=== PATIENT | male | born 1960 | race Caucasian/White ===

== ENCOUNTER 2021-10-11 11:03 | Outpatient (CLI) | payer MEDICAID, SELFPAY | END 2021-10-11 11:04 | disposition home or self-care (01) | LOC: WOUND 11:04 | PROVIDERS: Visit Provider Nurse Practitioner Family | DX: E11.622 Type 2 diabetes mellitus with other skin ulcer (principal); L97.825 Non-pressure chronic ulcer of other part of left lower leg with muscle involvement without evidence of necrosis; D50.9 Iron deficiency anemia, unspecified; E66.01 Morbid (severe) obesity due to excess calories; Z68.43 Body mass index [BMI] 50.0-59.9, adult; Z79.4 Long term (current) use of insulin | CPT/HCPCS: 11042; 11045 ==

== ENCOUNTER 2021-10-18 13:01 | Outpatient (CLI) | payer MEDICAID, SELFPAY | END 2021-10-18 13:02 | disposition home or self-care (01) | LOC: WOUND 13:01 | PROVIDERS: Visit Provider Nurse Practitioner Family | DX: E11.622 Type 2 diabetes mellitus with other skin ulcer (principal); L97.823 Non-pressure chronic ulcer of other part of left lower leg with necrosis of muscle; S91.332A Puncture wound without foreign body, left foot, initial encounter; Z79.4 Long term (current) use of insulin; D50.9 Iron deficiency anemia, unspecified | CPT/HCPCS: 11043; 11046; 17250 ==

== ENCOUNTER 2021-10-25 12:46 | Outpatient (CLI) | payer MEDICAID, SELFPAY ==
--- NOTE | 2021-10-25 14:30 | CRLHL7_ITS ---
For Patients: As a result of the Century Cures Act, medical imaging exams and procedure reports are released immediately into your electronic medical record. You may view this report before your referring provider. If you have questions, please contact your health care provider. Indication: Nonhealing wound left foot, plantar side 5th toe.. Technique: Left foot 3 views. Comparison: None. Findings: Bones: Alignment is normal. No fractures. Degenerative changes are noted throughout the foot. Thickened cortex and probable periosteal reaction in the shaft of the 5th metacarpal. There are erosive changes identified at the 5th distal phalanx. Joint spaces: Joint spaces are well maintained. No degenerative changes. Soft tissues: Plantar soft tissue swelling. Cutaneous defect noted near the distal 1st phalanx.. Impression: Erosive changes at the distal 5th phalanx likely related to adjacent ulceration and suspicious for osteomyelitis. Dictated by Daphnie Arellano MD @ 10/25/2021 4:06:25 PM (Electronically Signed)
== END 2021-10-25 12:47 | disposition home or self-care (01) ==
PROVIDERS: Visit Provider Nurse Practitioner Family
DX: E11.621 Type 2 diabetes mellitus with foot ulcer (principal); L97.823 Non-pressure chronic ulcer of other part of left lower leg with necrosis of muscle; S91.332A Puncture wound without foreign body, left foot, initial encounter; Z79.4 Long term (current) use of insulin
CPT/HCPCS: 11043; 11046; 73630

== ENCOUNTER 2021-11-01 12:48 | Outpatient (CLI) | payer MEDICAID, SELFPAY | END 2021-11-01 12:49 | disposition home or self-care (01) | LOC: RAD 12:48 | PROVIDERS: Visit Provider Nurse Practitioner Family | DX: E11.622 Type 2 diabetes mellitus with other skin ulcer (principal); E11.621 Type 2 diabetes mellitus with foot ulcer; L97.823 Non-pressure chronic ulcer of other part of left lower leg with necrosis of muscle; S91.332A Puncture wound without foreign body, left foot, initial encounter; Z79.84 Long term (current) use of oral hypoglycemic drugs; Z79.4 Long term (current) use of insulin | CPT/HCPCS: 11042; 11043; 11046 ==

== ENCOUNTER 2021-11-08 13:53 | Outpatient (CLI) | payer MEDICAID, SELFPAY | END 2021-11-08 13:54 | disposition home or self-care (01) | LOC: WOUND 13:55 | PROVIDERS: Visit Provider Nurse Practitioner Family | DX: E11.622 Type 2 diabetes mellitus with other skin ulcer (principal); L97.823 Non-pressure chronic ulcer of other part of left lower leg with necrosis of muscle; S91.332A Puncture wound without foreign body, left foot, initial encounter; Z79.4 Long term (current) use of insulin; Z79.84 Long term (current) use of oral hypoglycemic drugs | CPT/HCPCS: 11042; 11045 ==

== ENCOUNTER 2021-11-15 15:02 | Outpatient (CLI) | payer MEDICAID, SELFPAY | END 2021-11-15 15:03 | disposition home or self-care (01) | LOC: WOUND 01-25 15:33 | PROVIDERS: Visit Provider Nurse Practitioner Family | DX: E11.622 Type 2 diabetes mellitus with other skin ulcer (principal); E11.621 Type 2 diabetes mellitus with foot ulcer; L97.823 Non-pressure chronic ulcer of other part of left lower leg with necrosis of muscle; L97.528 Non-pressure chronic ulcer of other part of left foot with other specified severity; S91.332A Puncture wound without foreign body, left foot, initial encounter; Z79.4 Long term (current) use of insulin; Z79.84 Long term (current) use of oral hypoglycemic drugs | CPT/HCPCS: 11043; 11046 ==

== ENCOUNTER 2021-11-22 13:54 | Outpatient (CLI) | payer MEDICAID, SELFPAY | END 2021-11-22 13:55 | disposition home or self-care (01) | LOC: WOUND 13:54 | PROVIDERS: Visit Provider Nurse Practitioner Family | DX: E11.622 Type 2 diabetes mellitus with other skin ulcer (principal); E11.621 Type 2 diabetes mellitus with foot ulcer; L97.823 Non-pressure chronic ulcer of other part of left lower leg with necrosis of muscle; L97.525 Non-pressure chronic ulcer of other part of left foot with muscle involvement without evidence of necrosis; Z79.4 Long term (current) use of insulin; Z79.84 Long term (current) use of oral hypoglycemic drugs | CPT/HCPCS: 11042; 11045 ==

== ENCOUNTER 2021-11-29 13:48 | Outpatient (CLI) | payer MEDICAID, SELFPAY | END 2021-11-29 13:49 | disposition home or self-care (01) | LOC: WOUND 13:48 | PROVIDERS: Visit Provider Nurse Practitioner Family | DX: E11.622 Type 2 diabetes mellitus with other skin ulcer (principal); L97.823 Non-pressure chronic ulcer of other part of left lower leg with necrosis of muscle; Z79.84 Long term (current) use of oral hypoglycemic drugs | CPT/HCPCS: 11042; 11045 ==

== ENCOUNTER 2021-12-13 13:59 | Outpatient (CLI) | payer MEDICAID, SELFPAY | END 2021-12-13 14:00 | disposition home or self-care (01) | LOC: WOUND 13:59 | PROVIDERS: Visit Provider Nurse Practitioner Family | DX: E11.621 Type 2 diabetes mellitus with foot ulcer (principal); E11.622 Type 2 diabetes mellitus with other skin ulcer; L97.823 Non-pressure chronic ulcer of other part of left lower leg with necrosis of muscle; L97.522 Non-pressure chronic ulcer of other part of left foot with fat layer exposed; Z79.4 Long term (current) use of insulin; Z79.84 Long term (current) use of oral hypoglycemic drugs | CPT/HCPCS: 11042; 11045 ==

== ENCOUNTER 2021-12-20 13:49 | Outpatient (CLI) | payer MEDICAID, SELFPAY | END 2021-12-20 13:50 | disposition home or self-care (01) | LOC: WOUND 13:50 | PROVIDERS: Visit Provider Nurse Practitioner Family | DX: E11.621 Type 2 diabetes mellitus with foot ulcer (principal); E11.622 Type 2 diabetes mellitus with other skin ulcer; L97.823 Non-pressure chronic ulcer of other part of left lower leg with necrosis of muscle | CPT/HCPCS: 11043; 11046 ==

== ENCOUNTER 2021-12-20 15:25 | Outpatient (CLI) | payer MEDICAID, SELFPAY ==
[2021-12-20 16:00] LABS: Basophils Absolute Auto 0.03 K/uL (0.00-0.30); Basophils Percent Auto 0.4 % (0.0-3.0); Eosinophils Percent Auto 7.5 % (0.0-7.0); Hematocrit 35.5 % (37.0-53.0); Hemoglobin* 11.6 gm/dL (13.5-17.5); Immature Granulocytes Abs Auto 0.01 K/uL (0.00-0.30); Mean Corpuscular HGB Conc 33 gm/dL (32-36); Mean Corpuscular Hemoglobin 26 pg (26-34); Mean Corpuscular Volume 79 fL (80-100); Monocytes Percent Auto 6.8 % (0.0-11.0); Neutrophils Absolute Auto 4.59 K/uL (1.7-7.0); Neutrophils Percent Auto 66.2 % (42.0-72.0); Platelet Count* 187 K/uL (140-440); Red Blood Count 4.51 m/uL (4.30-5.90); White Blood Count* 6.94 K/uL (4.50-11.00)
[2021-12-20 16:04] LABS: Slide Review Reflex No
[2021-12-20 16:27] LABS: Albumin* 4.1 g/dL (3.3-5.0); Chloride* 101 mmol/L (96-114)
[2021-12-20 16:28] LABS: Potassium* 4.6 mmol/L (3.6-5.1); Sodium* 141 mmol/L (135-149)
[2021-12-20 16:30] LABS: Creatinine* 1.5 mg/dL (0.5-1.5); Estimated Glomerular Filt Rate 53 ml/min
[2021-12-20 16:31] LABS: Alanine Aminotransferase* 21 U/L (4-50); Alkaline Phosphatase* 91 U/L (40-150); Aspartate Amino Transferase* 19 U/L (12-35); Bilirubin Direct* 0.2 mg/dL (0.0-0.5); Bilirubin Total* 0.6 mg/dL (0.1-1.5); Blood Urea Nitrogen* 30 mg/dL (7-30); Calcium* 8.7 mg/dL (8.4-10.6); Carbon Dioxide* 29 mmol/L (20-32); Glucose* 96 mg/dL (60-115); Total Protein* 6.9 g/dL (6.0-8.3)
[2021-12-20 16:47] LABS: Hemoglobin A1C* 7.63 % (0-5.6)
[2021-12-20 16:51] LABS: C Reactive Protein* < 0.5 mg/dL (0.5-1.0)
[2021-12-20 17:42] LABS: Ferritin* 44.1 ng/mL (17.9-464.0)
== END 2021-12-20 15:26 | disposition home or self-care (01) ==
PROVIDERS: Visit Provider Nurse Practitioner Family
DX: E11.622 Type 2 diabetes mellitus with other skin ulcer (principal); E66.01 Morbid (severe) obesity due to excess calories; L29.9 Pruritus, unspecified; L97.523 Non-pressure chronic ulcer of other part of left foot with necrosis of muscle; L97.909 Non-pressure chronic ulcer of unspecified part of unspecified lower leg with unspecified severity; Z68.43 Body mass index [BMI] 50.0-59.9, adult
CPT/HCPCS: 11043; 11046; 36415; 80048; 80076; 82728; 83036; 85025; 86140

== ENCOUNTER 2021-12-27 14:26 | Outpatient (CLI) | payer MEDICAID, SELFPAY | END 2021-12-27 14:27 | disposition home or self-care (01) | LOC: WOUND 14:27 | PROVIDERS: Visit Provider Nurse Practitioner Family | DX: E11.621 Type 2 diabetes mellitus with foot ulcer (principal); E11.622 Type 2 diabetes mellitus with other skin ulcer; L97.526 Non-pressure chronic ulcer of other part of left foot with bone involvement without evidence of necrosis; L97.823 Non-pressure chronic ulcer of other part of left lower leg with necrosis of muscle; Z79.4 Long term (current) use of insulin; Z79.84 Long term (current) use of oral hypoglycemic drugs | CPT/HCPCS: 11043 ==

== ENCOUNTER 2022-01-31 14:08 | Outpatient (CLI) | payer MEDICAID, SELFPAY | END 2022-01-31 14:09 | disposition home or self-care (01) | LOC: WOUND 14:08 | PROVIDERS: PCP Family Medicine; Visit Provider Nurse Practitioner Family | DX: E11.622 Type 2 diabetes mellitus with other skin ulcer (principal); E11.621 Type 2 diabetes mellitus with foot ulcer; L97.823 Non-pressure chronic ulcer of other part of left lower leg with necrosis of muscle; L97.526 Non-pressure chronic ulcer of other part of left foot with bone involvement without evidence of necrosis; S81.801A Unspecified open wound, right lower leg, initial encounter; Z79.4 Long term (current) use of insulin | CPT/HCPCS: 11042; 11043; 11046; 99212 ==

== ENCOUNTER 2022-02-14 14:01 | Outpatient (CLI) | payer MEDICAID, SELFPAY | END 2022-02-14 14:02 | disposition home or self-care (01) | LOC: WOUND 14:01 | PROVIDERS: PCP Family Medicine; Visit Provider Nurse Practitioner Family | DX: E11.622 Type 2 diabetes mellitus with other skin ulcer (principal); L97.823 Non-pressure chronic ulcer of other part of left lower leg with necrosis of muscle; E11.621 Type 2 diabetes mellitus with foot ulcer; L97.526 Non-pressure chronic ulcer of other part of left foot with bone involvement without evidence of necrosis; Z79.4 Long term (current) use of insulin; Z79.84 Long term (current) use of oral hypoglycemic drugs; S81.801A Unspecified open wound, right lower leg, initial encounter | CPT/HCPCS: 11043; 97597 ==

== ENCOUNTER 2022-02-21 13:58 | Outpatient (CLI) | payer MEDICAID, SELFPAY | END 2022-02-21 13:59 | disposition home or self-care (01) | LOC: WOUND 13:58 | PROVIDERS: PCP Family Medicine; Visit Provider Nurse Practitioner Family | DX: E11.622 Type 2 diabetes mellitus with other skin ulcer (principal); L97.823 Non-pressure chronic ulcer of other part of left lower leg with necrosis of muscle; E11.621 Type 2 diabetes mellitus with foot ulcer; L97.526 Non-pressure chronic ulcer of other part of left foot with bone involvement without evidence of necrosis; I87.311 Chronic venous hypertension (idiopathic) with ulcer of right lower extremity; L97.818 Non-pressure chronic ulcer of other part of right lower leg with other specified severity; Z79.84 Long term (current) use of oral hypoglycemic drugs; Z79.4 Long term (current) use of insulin | CPT/HCPCS: 11042 ==

== ENCOUNTER 2022-02-28 13:50 | Outpatient (CLI) | payer MEDICAID, SELFPAY | END 2022-02-28 13:51 | disposition home or self-care (01) | LOC: WOUND 13:50 | PROVIDERS: PCP Family Medicine; Visit Provider Nurse Practitioner Family | DX: E11.622 Type 2 diabetes mellitus with other skin ulcer (principal); E11.621 Type 2 diabetes mellitus with foot ulcer; L97.823 Non-pressure chronic ulcer of other part of left lower leg with necrosis of muscle; L97.526 Non-pressure chronic ulcer of other part of left foot with bone involvement without evidence of necrosis; Z79.4 Long term (current) use of insulin; Z79.84 Long term (current) use of oral hypoglycemic drugs | CPT/HCPCS: 11042 ==

== ENCOUNTER 2022-03-21 13:58 | Outpatient (CLI) | payer MEDICAID, SELFPAY | END 2022-03-21 13:59 | disposition home or self-care (01) | LOC: WOUND 13:58 | PROVIDERS: PCP Family Medicine; Visit Provider Nurse Practitioner Family | DX: E11.621 Type 2 diabetes mellitus with foot ulcer (principal); L97.526 Non-pressure chronic ulcer of other part of left foot with bone involvement without evidence of necrosis; E11.622 Type 2 diabetes mellitus with other skin ulcer; L97.823 Non-pressure chronic ulcer of other part of left lower leg with necrosis of muscle; Z79.84 Long term (current) use of oral hypoglycemic drugs; Z79.4 Long term (current) use of insulin | CPT/HCPCS: 11042 ==

== ENCOUNTER 2022-04-11 13:48 | Outpatient (CLI) | payer MEDICAID, SELFPAY | END 2022-04-11 13:49 | disposition home or self-care (01) | LOC: WOUND 13:48 | PROVIDERS: PCP Family Medicine; Visit Provider Nurse Practitioner Family | DX: E11.622 Type 2 diabetes mellitus with other skin ulcer (principal); L97.823 Non-pressure chronic ulcer of other part of left lower leg with necrosis of muscle; E11.621 Type 2 diabetes mellitus with foot ulcer; L97.526 Non-pressure chronic ulcer of other part of left foot with bone involvement without evidence of necrosis; Z79.4 Long term (current) use of insulin; Z79.84 Long term (current) use of oral hypoglycemic drugs | CPT/HCPCS: 11043 ==

== ENCOUNTER 2022-04-25 13:58 | Outpatient (CLI) | payer MEDICAID, SELFPAY | END 2022-04-25 13:59 | disposition home or self-care (01) | LOC: WOUND 13:58 | PROVIDERS: PCP Family Medicine; Visit Provider Nurse Practitioner Family | DX: E11.622 Type 2 diabetes mellitus with other skin ulcer (principal); L97.825 Non-pressure chronic ulcer of other part of left lower leg with muscle involvement without evidence of necrosis; E11.621 Type 2 diabetes mellitus with foot ulcer; L97.526 Non-pressure chronic ulcer of other part of left foot with bone involvement without evidence of necrosis; Z79.4 Long term (current) use of insulin; Z79.84 Long term (current) use of oral hypoglycemic drugs | CPT/HCPCS: 11042; 97597 ==

== ENCOUNTER 2022-05-09 13:47 | Outpatient (CLI) | payer MEDICAID, SELFPAY | END 2022-05-09 13:48 | disposition home or self-care (01) | LOC: WOUND 13:47 | PROVIDERS: PCP Family Medicine; Visit Provider Nurse Practitioner Family | DX: E11.622 Type 2 diabetes mellitus with other skin ulcer (principal); L97.823 Non-pressure chronic ulcer of other part of left lower leg with necrosis of muscle; S81.811A Laceration without foreign body, right lower leg, initial encounter; L97.526 Non-pressure chronic ulcer of other part of left foot with bone involvement without evidence of necrosis; Z79.4 Long term (current) use of insulin; Z79.84 Long term (current) use of oral hypoglycemic drugs | CPT/HCPCS: 11042; 97597 ==

== ENCOUNTER 2022-05-23 13:45 | Outpatient (CLI) | payer MEDICAID, SELFPAY | END 2022-05-23 13:46 | disposition home or self-care (01) | LOC: WOUND 13:45 | PROVIDERS: PCP Family Medicine; Visit Provider Nurse Practitioner Family | DX: E11.622 Type 2 diabetes mellitus with other skin ulcer (principal); L97.823 Non-pressure chronic ulcer of other part of left lower leg with necrosis of muscle; E11.621 Type 2 diabetes mellitus with foot ulcer; L97.526 Non-pressure chronic ulcer of other part of left foot with bone involvement without evidence of necrosis; L30.9 Dermatitis, unspecified; Z89.422 Acquired absence of other left toe(s); Z79.4 Long term (current) use of insulin; Z79.84 Long term (current) use of oral hypoglycemic drugs | CPT/HCPCS: 11042; 97597 ==

== ENCOUNTER 2022-06-25 14:19 | Outpatient (CLI) | payer MEDICAID, SELFPAY | END 2022-06-25 14:20 | disposition home or self-care (01) | LOC: WOUND 14:19 | PROVIDERS: PCP Family Medicine; Visit Provider Nurse Practitioner Family | DX: E11.622 Type 2 diabetes mellitus with other skin ulcer (principal); L97.823 Non-pressure chronic ulcer of other part of left lower leg with necrosis of muscle; Z79.4 Long term (current) use of insulin; Z79.84 Long term (current) use of oral hypoglycemic drugs | CPT/HCPCS: 11042 ==

== ENCOUNTER 2022-07-04 13:15 | Outpatient (CLI) | payer MEDICAID, SELFPAY | END 2022-07-04 13:16 | disposition home or self-care (01) | LOC: WOUND 13:15 | PROVIDERS: PCP Family Medicine; Visit Provider Nurse Practitioner Family | DX: E11.622 Type 2 diabetes mellitus with other skin ulcer (principal); L97.823 Non-pressure chronic ulcer of other part of left lower leg with necrosis of muscle; Z79.4 Long term (current) use of insulin; Z79.84 Long term (current) use of oral hypoglycemic drugs | CPT/HCPCS: 11042 ==

== ENCOUNTER 2022-07-11 13:13 | Outpatient (CLI) | payer MEDICAID, SELFPAY | END 2022-07-11 13:14 | disposition home or self-care (01) | LOC: WOUND 13:13 | PROVIDERS: PCP Family Medicine; Visit Provider Nurse Practitioner Family | DX: E11.622 Type 2 diabetes mellitus with other skin ulcer (principal); L97.823 Non-pressure chronic ulcer of other part of left lower leg with necrosis of muscle; Z79.4 Long term (current) use of insulin; Z79.84 Long term (current) use of oral hypoglycemic drugs | CPT/HCPCS: 11042 ==

== ENCOUNTER 2022-07-18 13:11 | Outpatient (CLI) | payer MEDICAID, SELFPAY ==
[2022-07-18 15:05] LABS: Hemoglobin A1C* 7.98 % (0-5.6)
[2022-07-18 16:06] LABS: Free T4 Free Thyroxine* 0.83 ng/dL (0.70-1.85)
[2022-07-18 16:24] LABS: Ferritin* 57.6 ng/mL (17.9-464.0)
[2022-07-19 13:04] LABS: Thyroid Stimulating Hormone* 0.736 uIU/mL (0.270-4.20)
[2022-07-20 14:48] LABS: TPO Antibody 2.4 IU/mL (0.0-9.0); Thyroglobulin Antibody <0.9 IU/mL (0.0-4.0)
[2022-07-20 15:06] LABS: Free T3 2.7 pg/mL (2.5-4.3); Total T3 94 ng/dL (80-200)
[2022-07-23 23:07] LABS: T3 Reverse - LC-MS/MS 12.5 ng/dL (9.0-27.0); T3, Total - LC-MS/MS 75 ng/dL (80-200)
== END 2022-07-18 13:12 | disposition home or self-care (01) ==
LOC: WOUND 13:11
PROVIDERS: PCP Family Medicine; Visit Provider Nurse Practitioner Family
DX: E11.622 Type 2 diabetes mellitus with other skin ulcer (principal); L97.823 Non-pressure chronic ulcer of other part of left lower leg with necrosis of muscle; D50.9 Iron deficiency anemia, unspecified; I87.2 Venous insufficiency (chronic) (peripheral); R53.83 Other fatigue; L85.3 Xerosis cutis; Z79.4 Long term (current) use of insulin; Z13.29 Encounter for screening for other suspected endocrine disorder
CPT/HCPCS: 11042; 36415; 82728; 83036; 84439; 84443; 84480; 84481; 84482; 86376; 86800

== ENCOUNTER 2022-07-25 13:17 | Outpatient (CLI) | payer MEDICAID, SELFPAY | END 2022-07-25 13:18 | disposition home or self-care (01) | LOC: WOUND 13:17 | PROVIDERS: PCP Family Medicine; Visit Provider Nurse Practitioner Family | DX: E11.622 Type 2 diabetes mellitus with other skin ulcer (principal); L97.823 Non-pressure chronic ulcer of other part of left lower leg with necrosis of muscle; Z79.4 Long term (current) use of insulin; Z79.84 Long term (current) use of oral hypoglycemic drugs | CPT/HCPCS: 97597 ==

== ENCOUNTER 2022-08-08 12:05 | Outpatient (CLI) | payer MEDICAID, SELFPAY | END 2022-08-08 12:06 | disposition home or self-care (01) | LOC: WOUND 12:05 | PROVIDERS: PCP Family Medicine; Visit Provider Nurse Practitioner Family | DX: E11.622 Type 2 diabetes mellitus with other skin ulcer (principal); L97.823 Non-pressure chronic ulcer of other part of left lower leg with necrosis of muscle; I87.2 Venous insufficiency (chronic) (peripheral); Z79.4 Long term (current) use of insulin; Z79.84 Long term (current) use of oral hypoglycemic drugs | CPT/HCPCS: 11042; 99212 ==

== ENCOUNTER 2022-08-15 12:40 | Outpatient (CLI) | payer MEDICAID, SELFPAY | END 2022-08-15 12:41 | disposition home or self-care (01) | LOC: WOUND 12:40 | PROVIDERS: PCP Family Medicine; Visit Provider Nurse Practitioner Family | DX: E11.622 Type 2 diabetes mellitus with other skin ulcer (principal); L97.222 Non-pressure chronic ulcer of left calf with fat layer exposed; L97.812 Non-pressure chronic ulcer of other part of right lower leg with fat layer exposed; L97.822 Non-pressure chronic ulcer of other part of left lower leg with fat layer exposed; R53.83 Other fatigue; E66.01 Morbid (severe) obesity due to excess calories; Z68.43 Body mass index [BMI] 50.0-59.9, adult; Z79.4 Long term (current) use of insulin; Z79.84 Long term (current) use of oral hypoglycemic drugs | CPT/HCPCS: 11042 ==

== ENCOUNTER 2022-10-03 13:06 | Outpatient (CLI) | payer MEDICAID, SELFPAY | END 2022-10-03 13:07 | disposition home or self-care (01) | LOC: WOUND 13:06 | PROVIDERS: PCP Family Medicine; Visit Provider Family Medicine | DX: E11.622 Type 2 diabetes mellitus with other skin ulcer (principal); I87.312 Chronic venous hypertension (idiopathic) with ulcer of left lower extremity; L97.823 Non-pressure chronic ulcer of other part of left lower leg with necrosis of muscle; L97.222 Non-pressure chronic ulcer of left calf with fat layer exposed; L97.212 Non-pressure chronic ulcer of right calf with fat layer exposed; S91.101A Unspecified open wound of right great toe without damage to nail, initial encounter; Z79.4 Long term (current) use of insulin; Z79.84 Long term (current) use of oral hypoglycemic drugs | CPT/HCPCS: 97597 ==

== ENCOUNTER 2022-10-17 12:51 | Outpatient (CLI) | payer MEDICAID, SELFPAY | END 2022-10-17 12:52 | disposition home or self-care (01) | LOC: WOUND 12:51 | PROVIDERS: PCP Family Medicine; Visit Provider Nurse Practitioner Family | DX: E11.622 Type 2 diabetes mellitus with other skin ulcer (principal); L97.823 Non-pressure chronic ulcer of other part of left lower leg with necrosis of muscle; Z79.4 Long term (current) use of insulin; Z79.84 Long term (current) use of oral hypoglycemic drugs | CPT/HCPCS: 11042 ==

== ENCOUNTER 2022-10-31 14:06 | Outpatient (CLI) | payer MEDICAID, SELFPAY | END 2022-10-31 14:07 | disposition home or self-care (01) | LOC: WOUND 14:06 | PROVIDERS: PCP Family Medicine; Visit Provider Nurse Practitioner Family | DX: E11.622 Type 2 diabetes mellitus with other skin ulcer (principal); L97.823 Non-pressure chronic ulcer of other part of left lower leg with necrosis of muscle; S91.101A Unspecified open wound of right great toe without damage to nail, initial encounter; Z79.4 Long term (current) use of insulin; Z79.84 Long term (current) use of oral hypoglycemic drugs | CPT/HCPCS: 11042; 97602 ==

== ENCOUNTER 2022-11-14 13:04 | Outpatient (CLI) | payer MEDICAID, SELFPAY | END 2022-11-14 13:05 | disposition home or self-care (01) | LOC: WOUND 13:04 | PROVIDERS: PCP Family Medicine; Visit Provider Nurse Practitioner Family | DX: E11.622 Type 2 diabetes mellitus with other skin ulcer (principal); L97.823 Non-pressure chronic ulcer of other part of left lower leg with necrosis of muscle; Z79.4 Long term (current) use of insulin; Z79.84 Long term (current) use of oral hypoglycemic drugs | CPT/HCPCS: 11042 ==

== ENCOUNTER 2022-11-28 13:07 | Outpatient (CLI) | payer MEDICAID, SELFPAY | END 2022-11-28 13:08 | disposition home or self-care (01) | PROVIDERS: PCP Family Medicine; Visit Provider Nurse Practitioner Family | DX: E11.621 Type 2 diabetes mellitus with foot ulcer (principal); L97.512 Non-pressure chronic ulcer of other part of right foot with fat layer exposed; E11.622 Type 2 diabetes mellitus with other skin ulcer; L97.822 Non-pressure chronic ulcer of other part of left lower leg with fat layer exposed; Z79.4 Long term (current) use of insulin; Z79.84 Long term (current) use of oral hypoglycemic drugs | CPT/HCPCS: 11042 ==

== ENCOUNTER 2022-12-12 13:08 | Outpatient (CLI) | payer MEDICAID, SELFPAY | END 2022-12-12 13:09 | disposition home or self-care (01) | LOC: WOUND 13:08 | PROVIDERS: PCP Family Medicine; Visit Provider Nurse Practitioner Family | DX: E11.622 Type 2 diabetes mellitus with other skin ulcer (principal); L97.822 Non-pressure chronic ulcer of other part of left lower leg with fat layer exposed; Z79.4 Long term (current) use of insulin; Z79.84 Long term (current) use of oral hypoglycemic drugs | CPT/HCPCS: 11042 ==

== ENCOUNTER 2022-12-26 13:12 | Outpatient (CLI) | payer MEDICAID, SELFPAY | END 2022-12-26 13:13 | disposition home or self-care (01) | LOC: WOUND 13:12 | PROVIDERS: PCP Family Medicine; Visit Provider Nurse Practitioner Family | DX: E11.622 Type 2 diabetes mellitus with other skin ulcer (principal); L97.822 Non-pressure chronic ulcer of other part of left lower leg with fat layer exposed; Z79.4 Long term (current) use of insulin; Z79.84 Long term (current) use of oral hypoglycemic drugs | CPT/HCPCS: 11042 ==

== ENCOUNTER 2023-01-09 13:27 | Outpatient (CLI) | payer MEDICAID, SELFPAY | END 2023-01-09 13:28 | disposition home or self-care (01) | LOC: WOUND 01-17 11:13 | PROVIDERS: PCP Family Medicine; Visit Provider Nurse Practitioner Family | DX: E11.622 Type 2 diabetes mellitus with other skin ulcer (principal); L97.828 Non-pressure chronic ulcer of other part of left lower leg with other specified severity; Z79.4 Long term (current) use of insulin; Z79.84 Long term (current) use of oral hypoglycemic drugs | CPT/HCPCS: 11042 ==

== ENCOUNTER 2023-01-23 13:20 | Outpatient (CLI) | payer MEDICAID, SELFPAY | END 2023-01-23 13:21 | disposition home or self-care (01) | LOC: WOUND 13:20 | PROVIDERS: PCP Family Medicine; Visit Provider Nurse Practitioner Family | DX: E11.622 Type 2 diabetes mellitus with other skin ulcer (principal); L97.822 Non-pressure chronic ulcer of other part of left lower leg with fat layer exposed; Z79.4 Long term (current) use of insulin; Z79.84 Long term (current) use of oral hypoglycemic drugs | CPT/HCPCS: 11042 ==

== ENCOUNTER 2023-02-20 13:29 | Outpatient (CLI) | payer MEDICAID, SELFPAY | END 2023-02-20 13:30 | disposition home or self-care (01) | LOC: WOUND 13:29 | PROVIDERS: PCP Family Medicine; Visit Provider Nurse Practitioner Family | DX: E11.622 Type 2 diabetes mellitus with other skin ulcer (principal); L97.822 Non-pressure chronic ulcer of other part of left lower leg with fat layer exposed; S91.131A Puncture wound without foreign body of right great toe without damage to nail, initial encounter; W26.8XXA Contact with other sharp object(s), not elsewhere classified, initial encounter; Z79.4 Long term (current) use of insulin; Z79.84 Long term (current) use of oral hypoglycemic drugs | CPT/HCPCS: 11042; 97602; 99213 ==

== ENCOUNTER 2023-03-20 13:32 | Outpatient (CLI) | payer MEDICAID, SELFPAY | END 2023-03-20 13:33 | disposition home or self-care (01) | LOC: WOUND 13:32 | PROVIDERS: PCP Family Medicine; Visit Provider Nurse Practitioner Family | DX: E11.622 Type 2 diabetes mellitus with other skin ulcer (principal); L97.822 Non-pressure chronic ulcer of other part of left lower leg with fat layer exposed; Z79.4 Long term (current) use of insulin; Z79.84 Long term (current) use of oral hypoglycemic drugs | CPT/HCPCS: 11042 ==

== ENCOUNTER 2023-04-17 13:28 | Outpatient (CLI) | payer MEDICAID, SELFPAY | END 2023-04-17 13:29 | disposition home or self-care (01) | LOC: WOUND 13:28 | PROVIDERS: PCP Family Medicine; Visit Provider Family Medicine | DX: E11.622 Type 2 diabetes mellitus with other skin ulcer (principal); L97.822 Non-pressure chronic ulcer of other part of left lower leg with fat layer exposed; Z79.4 Long term (current) use of insulin; Z79.84 Long term (current) use of oral hypoglycemic drugs; I89.0 Lymphedema, not elsewhere classified | CPT/HCPCS: 97597 ==

== ENCOUNTER 2023-05-21 12:40 | Outpatient (CLI) | payer MEDICAID, SELFPAY | END 2023-05-21 12:41 | disposition home or self-care (01) | LOC: WOUND 12:40 | PROVIDERS: PCP Family Medicine; Visit Provider Surgery | DX: E11.622 Type 2 diabetes mellitus with other skin ulcer (principal); L97.822 Non-pressure chronic ulcer of other part of left lower leg with fat layer exposed | CPT/HCPCS: 11042 ==

== ENCOUNTER 2023-06-19 13:33 | Outpatient (CLI) | payer MEDICAID, SELFPAY | END 2023-06-19 13:34 | disposition home or self-care (01) | LOC: WOUND 13:33 | PROVIDERS: PCP Family Medicine; Visit Provider Nurse Practitioner Family | DX: E11.622 Type 2 diabetes mellitus with other skin ulcer (principal); L97.822 Non-pressure chronic ulcer of other part of left lower leg with fat layer exposed; Z79.4 Long term (current) use of insulin; Z79.84 Long term (current) use of oral hypoglycemic drugs | CPT/HCPCS: 11042 ==

== ENCOUNTER 2023-07-17 13:26 | Outpatient (CLI) | payer MEDICAID, SELFPAY | END 2023-07-17 13:27 | disposition home or self-care (01) | LOC: WOUND 13:26 | PROVIDERS: PCP Family Medicine; Visit Provider Nurse Practitioner Family | DX: E11.622 Type 2 diabetes mellitus with other skin ulcer (principal); L97.822 Non-pressure chronic ulcer of other part of left lower leg with fat layer exposed; S91.311A Laceration without foreign body, right foot, initial encounter; I89.0 Lymphedema, not elsewhere classified; Z79.4 Long term (current) use of insulin; Z79.84 Long term (current) use of oral hypoglycemic drugs | CPT/HCPCS: 11042; 97602 ==

== ENCOUNTER 2023-08-21 13:25 | Outpatient (CLI) | payer MEDICAID, SELFPAY | END 2023-08-21 13:26 | disposition home or self-care (01) | LOC: WOUND 13:25 | PROVIDERS: PCP Family Medicine; Visit Provider Nurse Practitioner Family | DX: E11.622 Type 2 diabetes mellitus with other skin ulcer (principal); L97.222 Non-pressure chronic ulcer of left calf with fat layer exposed; S81.811A Laceration without foreign body, right lower leg, initial encounter; Z79.4 Long term (current) use of insulin; Z79.84 Long term (current) use of oral hypoglycemic drugs | CPT/HCPCS: 11042 ==

== ENCOUNTER 2023-09-11 13:28 | Outpatient (CLI) | payer MEDICAID, SELFPAY | END 2023-09-11 13:29 | disposition home or self-care (01) | PROVIDERS: PCP Family Medicine; Visit Provider Nurse Practitioner Family | DX: L97.222 Non-pressure chronic ulcer of left calf with fat layer exposed (principal); E11.622 Type 2 diabetes mellitus with other skin ulcer; Z79.4 Long term (current) use of insulin; Z79.84 Long term (current) use of oral hypoglycemic drugs | CPT/HCPCS: 97597 ==

== ENCOUNTER 2023-10-30 13:32 | Outpatient (CLI) | payer MEDICAID, SELFPAY | END 2023-10-30 13:33 | disposition home or self-care (01) | LOC: WOUND 13:32 | PROVIDERS: PCP Family Medicine; Visit Provider Nurse Practitioner Family | DX: E11.622 Type 2 diabetes mellitus with other skin ulcer (principal); I87.312 Chronic venous hypertension (idiopathic) with ulcer of left lower extremity; L97.822 Non-pressure chronic ulcer of other part of left lower leg with fat layer exposed; Z79.4 Long term (current) use of insulin; Z79.84 Long term (current) use of oral hypoglycemic drugs | CPT/HCPCS: 11042 ==

== ENCOUNTER 2023-11-13 13:19 | Outpatient (CLI) | payer MEDICAID, SELFPAY | END 2023-11-13 13:20 | disposition home or self-care (01) | LOC: WOUND 13:19 | PROVIDERS: PCP Family Medicine; Visit Provider Nurse Practitioner Family | DX: E11.622 Type 2 diabetes mellitus with other skin ulcer (principal); I87.312 Chronic venous hypertension (idiopathic) with ulcer of left lower extremity; I89.0 Lymphedema, not elsewhere classified; L97.822 Non-pressure chronic ulcer of other part of left lower leg with fat layer exposed; Z79.4 Long term (current) use of insulin; Z79.84 Long term (current) use of oral hypoglycemic drugs | CPT/HCPCS: 11042 ==

== ENCOUNTER 2023-11-27 13:34 | Outpatient (CLI) | payer MEDICAID, SELFPAY | END 2023-11-27 13:35 | disposition home or self-care (01) | LOC: WOUND 13:34 | PROVIDERS: PCP Family Medicine; Visit Provider Nurse Practitioner Family | DX: E11.622 Type 2 diabetes mellitus with other skin ulcer (principal); I87.312 Chronic venous hypertension (idiopathic) with ulcer of left lower extremity; L97.822 Non-pressure chronic ulcer of other part of left lower leg with fat layer exposed; S81.811A Laceration without foreign body, right lower leg, initial encounter; Z79.4 Long term (current) use of insulin | CPT/HCPCS: 11042; 15271; Q4121 ==

== ENCOUNTER 2023-12-11 12:47 | Outpatient (CLI) | payer MEDICAID, SELFPAY | END 2023-12-11 12:48 | disposition home or self-care (01) | LOC: WOUND 12:47 | PROVIDERS: PCP Family Medicine; Visit Provider Nurse Practitioner Family | DX: E11.622 Type 2 diabetes mellitus with other skin ulcer (principal); L97.822 Non-pressure chronic ulcer of other part of left lower leg with fat layer exposed; S81.811A Laceration without foreign body, right lower leg, initial encounter; Z79.4 Long term (current) use of insulin; Z79.84 Long term (current) use of oral hypoglycemic drugs | CPT/HCPCS: 97597 ==

== ENCOUNTER 2023-12-25 13:10 | Outpatient (CLI) | payer MEDICAID, SELFPAY | END 2023-12-25 13:11 | disposition home or self-care (01) | LOC: WOUND 13:10 | PROVIDERS: PCP Family Medicine; Visit Provider Nurse Practitioner Family | DX: E11.622 Type 2 diabetes mellitus with other skin ulcer (principal); L97.822 Non-pressure chronic ulcer of other part of left lower leg with fat layer exposed; I87.2 Venous insufficiency (chronic) (peripheral); I89.0 Lymphedema, not elsewhere classified; L97.812 Non-pressure chronic ulcer of other part of right lower leg with fat layer exposed; Z79.4 Long term (current) use of insulin; Z79.84 Long term (current) use of oral hypoglycemic drugs | CPT/HCPCS: 11042; 97597 ==

== ENCOUNTER 2024-01-08 13:21 | Outpatient (CLI) | payer MEDICAID, SELFPAY | END 2024-01-08 13:22 | disposition home or self-care (01) | LOC: WOUND 13:21 | PROVIDERS: PCP Family Medicine; Visit Provider Nurse Practitioner Family | DX: E11.622 Type 2 diabetes mellitus with other skin ulcer (principal); L97.822 Non-pressure chronic ulcer of other part of left lower leg with fat layer exposed; I87.311 Chronic venous hypertension (idiopathic) with ulcer of right lower extremity; I87.2 Venous insufficiency (chronic) (peripheral); L97.812 Non-pressure chronic ulcer of other part of right lower leg with fat layer exposed; Z79.4 Long term (current) use of insulin; Z79.84 Long term (current) use of oral hypoglycemic drugs | CPT/HCPCS: 11042 ==

== ENCOUNTER 2024-01-22 13:16 | Outpatient (CLI) | payer MEDICAID, SELFPAY | END 2024-01-22 13:17 | disposition home or self-care (01) | LOC: WOUND 13:16 | PROVIDERS: PCP Family Medicine; Visit Provider Nurse Practitioner Family | DX: E11.622 Type 2 diabetes mellitus with other skin ulcer (principal); L97.822 Non-pressure chronic ulcer of other part of left lower leg with fat layer exposed; I87.311 Chronic venous hypertension (idiopathic) with ulcer of right lower extremity; I87.2 Venous insufficiency (chronic) (peripheral); I89.0 Lymphedema, not elsewhere classified; L97.812 Non-pressure chronic ulcer of other part of right lower leg with fat layer exposed; Z79.4 Long term (current) use of insulin | CPT/HCPCS: 11042 ==

== ENCOUNTER 2024-03-25 12:54 | Outpatient (CLI) | payer MEDICAID, SELFPAY | END 2024-03-25 12:55 | disposition home or self-care (01) | LOC: WOUND 12:54 | PROVIDERS: PCP Family Medicine; Visit Provider Nurse Practitioner Family | DX: E11.622 Type 2 diabetes mellitus with other skin ulcer (principal); L97.822 Non-pressure chronic ulcer of other part of left lower leg with fat layer exposed; I87.311 Chronic venous hypertension (idiopathic) with ulcer of right lower extremity; I87.2 Venous insufficiency (chronic) (peripheral); L97.812 Non-pressure chronic ulcer of other part of right lower leg with fat layer exposed; Z79.4 Long term (current) use of insulin | CPT/HCPCS: 11042 ==

== ENCOUNTER 2024-04-22 12:45 | Outpatient (CLI) | payer MEDICAID, SELFPAY | END 2024-04-22 12:46 | disposition home or self-care (01) | LOC: WOUND 12:45 | PROVIDERS: PCP Family Medicine; Visit Provider Nurse Practitioner Family | DX: E11.622 Type 2 diabetes mellitus with other skin ulcer (principal); L97.822 Non-pressure chronic ulcer of other part of left lower leg with fat layer exposed; Z79.4 Long term (current) use of insulin | CPT/HCPCS: 11042 ==

== ENCOUNTER 2024-06-03 13:15 | Outpatient (CLI) | payer MEDICAID, SELFPAY | END 2024-06-03 13:16 | disposition home or self-care (01) | LOC: WOUND 13:15 | PROVIDERS: PCP Family Medicine; Visit Provider Nurse Practitioner Family | DX: E11.622 Type 2 diabetes mellitus with other skin ulcer (principal); L97.822 Non-pressure chronic ulcer of other part of left lower leg with fat layer exposed; L97.812 Non-pressure chronic ulcer of other part of right lower leg with fat layer exposed; I89.0 Lymphedema, not elsewhere classified; Z79.4 Long term (current) use of insulin; Z79.84 Long term (current) use of oral hypoglycemic drugs | CPT/HCPCS: 11042 ==

== ENCOUNTER 2024-07-15 13:02 | Outpatient (CLI) | payer MEDICAID, SELFPAY | END 2024-07-15 13:03 | disposition home or self-care (01) | LOC: WOUND 13:02 | PROVIDERS: PCP Family Medicine; Visit Provider Nurse Practitioner Family | DX: E11.622 Type 2 diabetes mellitus with other skin ulcer (principal); I87.2 Venous insufficiency (chronic) (peripheral); I89.0 Lymphedema, not elsewhere classified; L97.822 Non-pressure chronic ulcer of other part of left lower leg with fat layer exposed; S81.802A Unspecified open wound, left lower leg, initial encounter; Z79.84 Long term (current) use of oral hypoglycemic drugs | CPT/HCPCS: 11042; 87070; 87186 ==

== ENCOUNTER 2024-08-12 13:03 | Outpatient (CLI) | payer MEDICAID, SELFPAY | END 2024-08-12 13:04 | disposition home or self-care (01) | LOC: WOUND 13:03 | PROVIDERS: PCP Family Medicine; Visit Provider Nurse Practitioner Family | DX: E11.622 Type 2 diabetes mellitus with other skin ulcer (principal); L97.822 Non-pressure chronic ulcer of other part of left lower leg with fat layer exposed; I89.0 Lymphedema, not elsewhere classified; Z79.4 Long term (current) use of insulin; Z79.84 Long term (current) use of oral hypoglycemic drugs | CPT/HCPCS: 97597 ==

== ENCOUNTER 2024-09-16 13:07 | Outpatient (CLI) | payer MEDICAID, SELFPAY | END 2024-09-16 13:08 | disposition home or self-care (01) | LOC: WOUND 13:07 | PROVIDERS: PCP Family Medicine; Visit Provider Nurse Practitioner Family | DX: E11.622 Type 2 diabetes mellitus with other skin ulcer (principal); I89.0 Lymphedema, not elsewhere classified; L97.822 Non-pressure chronic ulcer of other part of left lower leg with fat layer exposed; Z79.4 Long term (current) use of insulin; Z79.84 Long term (current) use of oral hypoglycemic drugs; I87.2 Venous insufficiency (chronic) (peripheral) | CPT/HCPCS: 97597 ==

== ENCOUNTER 2024-10-14 14:01 | Outpatient (CLI) | payer MEDICAID, SELFPAY | END 2024-10-14 14:02 | disposition home or self-care (01) | LOC: WOUND 14:01 | PROVIDERS: PCP Family Medicine; Visit Provider Physician Assistant | DX: E11.622 Type 2 diabetes mellitus with other skin ulcer (principal); I87.2 Venous insufficiency (chronic) (peripheral); I89.0 Lymphedema, not elsewhere classified; L97.822 Non-pressure chronic ulcer of other part of left lower leg with fat layer exposed; Z79.4 Long term (current) use of insulin; Z79.84 Long term (current) use of oral hypoglycemic drugs | CPT/HCPCS: 97597 ==

== ENCOUNTER 2024-12-30 13:04 | Outpatient (CLI) | payer MEDICAID, SELFPAY | END 2024-12-30 13:05 | disposition home or self-care (01) | LOC: WOUND 13:04 | PROVIDERS: PCP Family Medicine; Visit Provider Nurse Practitioner Family | DX: E11.622 Type 2 diabetes mellitus with other skin ulcer (principal); I89.0 Lymphedema, not elsewhere classified; I87.2 Venous insufficiency (chronic) (peripheral); L97.822 Non-pressure chronic ulcer of other part of left lower leg with fat layer exposed; D50.9 Iron deficiency anemia, unspecified; Z79.4 Long term (current) use of insulin; Z79.84 Long term (current) use of oral hypoglycemic drugs | CPT/HCPCS: 11042 ==

== ENCOUNTER 2025-02-17 13:12 | Outpatient (CLI) | payer MEDICAID, SELFPAY | END 2025-02-17 13:13 | disposition home or self-care (01) | LOC: WOUND 13:12 | PROVIDERS: PCP Family Medicine; Visit Provider Nurse Practitioner Family | DX: E11.622 Type 2 diabetes mellitus with other skin ulcer (principal); I89.0 Lymphedema, not elsewhere classified; I87.2 Venous insufficiency (chronic) (peripheral); L97.822 Non-pressure chronic ulcer of other part of left lower leg with fat layer exposed; Z79.4 Long term (current) use of insulin; Z79.84 Long term (current) use of oral hypoglycemic drugs | CPT/HCPCS: 11042 ==